=== PATIENT | male | born 1970 ===

== ENCOUNTER 2018-06-30 01:48 | Emergency (ER) | payer SELFPAY ==
[2018-06-30 02:07] VITALS: RESP 18; TEMP 98; O2SAT 100
[2018-06-30] MEDS ORDERED: Sodium Chloride 0.9% 1,000 ML IV STA (02:42)
--- NOTE | 2018-06-30 02:46 | ED PDOC ---
Arrival/HPI - General Chief Complaint: Back Pain Time Seen by Provider: 06/30/18 02:24 Historian: Patient - History of Present Illness Narrative History of Present Illness (Text): 06/30/18 02:40 A 48 year old male, whose past medical history includes asthma, presents to the emergency department complaining of low back pain and abdominal pain. 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 States he has had back pain onand off for years. States he took 6 tabs of Tylenol and fell asleep, and woke up feeling dizzy. He had 1 episode of vomiting, states abdominal pain has improved and back pain still there. Patient denies any fever, chest pain, shortness of breath, diarrhea, dysuria, no extremity numbness/weakness, or any other complaints at this time. Past Medical History - Provider Review Nursing Documentation Reviewed: Yes - Musculoskeletal/Rheumatological Hx Musculoskeletal Disorders: Yes Hx Back Pain: Yes - Psychiatric Hx Substance Use: No Family/Social History - Physician Review Nursing Documentation Reviewed: Yes Family/Social History: No Known Family HX Smoking Status: Never Smoked Hx Alcohol Use: No Hx Substance Use: No Allergies/Home Meds Allergies/Adverse Reactions: Allergies No Known Allergies Allergy (Verified 06/30/18 02:03) Review of Systems - Physician Review All systems were reviewed & negative as marked: Yes - Review of Systems Constitutional: absent: Fevers Respiratory: absent: SOB Cardiovascular: absent: Chest Pain Gastrointestinal: Abdominal Pain, Vomiting (1 episode). absent: Diarrhea Musculoskeletal: Back Pain Physical Exam Vital Signs Reviewed: Yes Vital Signs Temp Pulse Resp BP Pulse Ox 06/30/18 02:03 98.0 F 67 18 106/65 100 Temperature: Afebrile Blood Pressure: Normal Pulse: Regular Respiratory Rate: Normal Appearance: Positive for: Well-Appearing, Non-Toxic, Comfortable Pain Distress: None Mental Status: Positive for: Alert and Oriented X 3 - Systems Exam Head: Present: Atraumatic, Normocephalic Pupils: Present: PERRL Extroacular Muscles: Present: EOMI, Other (horizontal nystagmus minimally) Conjunctiva: Present: Normal Mouth: Present: Moist Mucous Membranes Neck: Present: Normal Range of Motion Respiratory/Chest: Present: Clear to Auscultation, Good Air Exchange. No: Respiratory Distress, Accessory Muscle Use Cardiovascular: Present: Regular Rate and Rhythm, Normal S1, S2. No: Murmurs Abdomen: No: Tenderness, Distention, Peritoneal Signs Back: Present: Normal Inspection Upper Extremity: Present: Normal Inspection. No: Cyanosis, Edema Lower Extremity: Present: Normal Inspection. No: Edema Neurological: Present: GCS=15, CN II-XII Intact, Speech Normal Skin: Present: Warm, Dry, Normal Color. No: Rashes Psychiatric: Present: Alert, Oriented x 3, Normal Insight, Normal Concentration Medical Decision Making ED Course and Treatment: 06/30/18 02:48 Impression: 48 year old male with back pain and abdominal pain. Plan: -- Labs -- Urinalysis -- Toradol -- Antivert -- Iv Fluids -- Reassess and disposition Progress Notes: On re-eval, patient sleeping comfortably. States that symptoms have improved/ Results discussed with patient. Will discharge with Rx for meclizine for vertigo. advised acetaminophen or ibuprofen for back pain at home. Will not give narcotics at this time as patient is already complaining of dizziness. Patient stable for discharge home. - Scribe Statement The provider has reviewed the documentation as recorded by the Isaak Ontiveros Provider Scribe Attestation: All medical record entries made by the Isaak were at my direction and personally dictated by me. I have reviewed the chart and agree that the record accurately reflects my personal performance of the history, physical exam, medical decision making, and the department course for this patient. I have also personally directed, reviewed, and agree with the discharge instructions and disposition. Disposition/Present on Arrival - Present on Arrival Any Indicators Present on Arrival: No History of DVT/PE: No History of Uncontrolled Diabetes: No Urinary Catheter: No History of Decub. Ulcer: No History Surgical Site Infection Following: None - Disposition Have Diagnosis and Disposition been Completed?: Yes Diagnosis: Vertigo, Back pain Disposition: HOME/ ROUTINE Disposition Time: 04:45 Condition: STABLE Discharge Instructions (ExitCare): Low Back Pain (DC), Vertigo (a Type of Dizziness) (DC) Additional Instructions: PANCHO GREGG, thank you for letting us take care of you today. Your provider was Maribel Duval MD and you were treated for ABD PAIN. The emergency medical care you received today was directed at your acute symptoms. If you were prescribed any medication, please fill it and take as directed. It may take several days for your symptoms to resolve. Return to the Emergency Department if your symptoms worsen, do not improve, or if you have any other problems. Please contact your doctor or call one of the physicians/clinics you have been referred to that are listed on the Patient Visit Information form that is included in your discharge packet. Bring any paperwork you were given at discharge with you along with any medications you are taking to your follow up visit. Our treatment cannot replace ongoing medical care by a primary care provider outside of the emergency department. Thank you for allowing the [facility] team to be part of your care today. If you had an X-Ray or CT scan: A Radiologist will review the ED reading if any change in treatment is needed we will contact you. If you had a blood, urine, or wound culture: It will take several days for the results, if any change in treatment is needed we will contact you. If you had an STI test: It will take 48 hours for the results. Please call after 1 week if you have not heard back. Prescriptions: Meclizine [Meclizine*] 25 mg PO Q6 PRN #10 tab PRN Reason: Dizziness Forms: vufind (Arabic)
[2018-06-30 02:56] LABS: BASO # 0.03 K/mm3 (0.0-2.0); BASO % 0.2 % (0.0-3.0); EOS # 0.2 (0.0-0.7); EOS % 1.4 % (1.5-5.0); HEMOGLOBIN 13.8 g/dL (14.0-18.0); LYMPH # 1.1 (1.2-3.4); LYMPH % 7.9 % (22.0-35.0); MEAN CELL VOLUME 86.2 fl (80.0-105.0); MEAN CORPUSCULAR HEMOGLOBIN 28.9 pg (25.0-35.0); MEAN CORPUSCULAR HGB CONC 33.5 g/dl (31.0-37.0); MEAN PLATELET VOLUME 8.6 fl (7.0-11.0); MONO # 0.4 (0.1-0.6); MONO % 2.7 % (1.0-6.0); RBC 4.78 10^6/uL (3.5-6.1); RED CELL DISTRIBUTION WIDTH 13.6 % (11.5-14.5); WHITE BLOOD COUNT 13.5 10^3/uL (4.5-11.0)
[2018-06-30 03:05] LABS: ALB/GLOB RATIO 1.2 (1.1-1.8); ALT/SGPT 15 U/L (7-56); AST/SGOT 26 U/L (17-59); BLOOD UREA NITROGEN 15 mg/dL (7-21); CALCIUM 8.7 mg/dL (8.4-10.5); GFR NON-AFRICAN AMERICAN > 60; LIPASE 33 U/L (23-300)
[2018-06-30 04:44] LABS: PH,URINE 6.5 (4.7-8.0); URINE APPEARANCE CLEAR (CLEAR); URINE BILIRUBIN NEGATIVE (NEGATIVE); URINE BLOOD NEGATIVE (NEGATIVE); URINE COLOR YELLOW (YELLOW); URINE GLUCOSE (UA) NEGATIVE (NEGATIVE); URINE LEUKOCYTE ESTERASE NEGATIVE Leu/uL (NEGATIVE); URINE PROTEIN NEGATIVE mg/dL (<30 mg/dL)
[2018-06-30 04:50] VITALS: BP 108/70; PULSE 88
--- NOTE | 2018-06-30 14:14 | CARD ---
APPROVED REPORT Date of service: 06/30/2018 EKG Measurement Heart [id number] <Conclusion> Sinus rhythm with fusion complexes RSR' or QR pattern in V1 suggests right ventricular conduction delay Prolonged QT Abnormal ECG
== END 2018-06-30 04:56 | disposition home or self-care (01) ==
LOC: ED 01:48
DX: M54.5 Low back pain (principal); R42 Dizziness and giddiness
CPT/HCPCS: 80053; 81003; 83690; 83735; 84100; 85025; 93005; 96374; 99285; J1885; J7030